=== PATIENT | female | born 1950 ===

== ENCOUNTER 2021-04-17 12:26 | Outpatient (CLI) | payer OTHER | END 2021-04-17 12:30 | disposition home or self-care (01) | LOC: SONOGRAMA 12:26 | PROVIDERS: ATTEND Surgery | DX: D05.12 Intraductal carcinoma in situ of left breast (principal); N60.12 Diffuse cystic mastopathy of left breast; N60.11 Diffuse cystic mastopathy of right breast ==

== ENCOUNTER 2021-12-18 07:02 | Day surgery (SDC) | payer OTHER ==
[~2021-12-18 07:02] MED LIST: ENALAPRIL MALEA10 MG PO
== END 2021-12-18 19:00 | disposition home or self-care (01) ==
LOC: CIR.AMB 07:02
PROVIDERS: ATTEND Surgery
DX: D05.12 Intraductal carcinoma in situ of left breast (principal); C77.3 Secondary and unspecified malignant neoplasm of axilla and upper limb lymph nodes; Z20.822 Contact with and (suspected) exposure to COVID-19